=== PATIENT | male | born 2000 | race African-American/Black ===

== ENCOUNTER 2021-05-20 19:58 | Emergency (ER) | payer SELFPAY ==
[2021-05-20] MEDS ORDERED: ACETAMINOPHEN 325 MG TABLET ONE (20:21)
[2021-05-20 21:18] LABS: SARS-COV-2 RT PCR POSITIVE (NEGATIVE)
--- NOTE | 2021-05-20 21:31 | EDPHYS ---
Physician Documentation [facility] Name: Herrera Izaguirre III Age: 20 yrs Sex: Male : 2000 Arrival Date: 05/20/2021 Time: 20:04 Bed 12 Private MD: ED Physician Curt Pino HPI: 05/20 21:30 This 20 yrs old Black Male presents to ER via Ambulatory with complaints of Fever, Body pm1 aches, Runny Nose. 21:30 The patient reports fever, not measured (subjective). Onset: The symptoms/episode pm1 began/occurred yesterday. Associated signs and symptoms: Pertinent positives: runny nose, Body aches, Pertinent negatives: chest pain, cough, diarrhea, headache, shortness of breath, vomiting. Severity of symptoms: in the emergency department the symptoms have improved markedly, Patient reports no symptoms at the moment and has improved markedly since yesterday. The patient has not experienced similar symptoms in the past. The patient has not recently seen a physician. Historical: - Allergies: 20:17 No Known Allergies; bb - Home Meds: 20:17 None [Active]; bb - PMHx: 20:17 None; bb - PSHx: 20:17 None; bb - Immunization history:: Adult Immunizations up to date, Client reports having NOT received the Covid vaccine. - Social history:: Smoking status: Patient reports the use of cigarette tobacco products, Patient/guardian denies using alcohol, street drugs. ROS: 21:30 Eyes: Negative for injury, pain, redness, and discharge, Neck: Negative for injury, pm1 pain, and swelling, Cardiovascular: Negative for chest pain, palpitations, and edema, Respiratory: Negative for shortness of breath, cough, wheezing, and pleuritic chest pain, Abdomen/GI: Negative for abdominal pain, nausea, vomiting, diarrhea, and constipation, Back: Negative for injury and pain, MS/Extremity: Negative for injury and deformity, Skin: Negative for injury, rash, and discoloration, Neuro: Negative for headache, weakness, numbness, tingling, and seizure. 21:30 Constitutional: Positive for body aches, fever, Negative for poor PO intake. 21:30 ENT: Positive for rhinorrhea, Negative for sore throat. 21:30 All other systems are negative. Exam: 21:30 Constitutional: This is a well developed, well nourished patient who is awake, alert, pm1 and in no acute distress. Head/Face: Normocephalic, atraumatic. 21:30 Back: No spinal tenderness. No costovertebral tenderness. Full range of motion. 21:30 Skin: Warm, dry with normal turgor. Normal color with no rashes, no lesions, and no evidence of cellulitis. MS/ Extremity: Pulses equal, no cyanosis. Neurovascular intact. Full, normal range of motion. 21:30 Eyes: Exam is negative for acute changes, Extraocular movements: no acute changes, Conjunctiva: no acute changes, no injection, Sclera: no acute changes, icterus, is not appreciated. 21:30 ENT: Exam is negative for acute changes, Mouth: no acute changes, Lips: normal, moist, Oral mucosa: normal, pink and intact, moist. 21:30 Cardiovascular: Exam negative for acute changes, Rate: normal, Rhythm: regular, Pulses: no pulse deficits are appreciated. 21:30 Respiratory: Exam negative for acute changes, respiratory distress, shortness of breath. 21:30 Abdomen/GI: Exam negative for acute changes, Inspection: abdomen appears normal, Palpation: abdomen is soft and non-tender, in all quadrants. 21:30 Neuro: Exam negative for acute changes, Orientation: is normal, Mentation: is normal, Motor: is normal, moves all fours. Vital Signs: 20:15 BP 125 / 97; Pulse 64; Resp 16 S; Temp 99.4(O); Pulse Ox 98% on R/A; Weight 60.78 kg bb (R); Height 5 ft. 6 in. (167.64 cm) (R); 20:15 Body Mass Index 21.63 (60.78 kg, 167.64 cm) bb MDM: 21:30 Data reviewed: vital signs. Data interpreted: Pulse oximetry: on room air is 98 %. pm1 Interpretation: normal. Counseling: I had a detailed discussion with the patient and/or guardian regarding: the historical points, exam findings, and any diagnostic results supporting the discharge/admit diagnosis, lab results, the need for outpatient follow up, to return to the emergency department if symptoms worsen or persist or if there are any questions or concerns that arise at home. 21:31 Patient medically screened. pm1 12/18 20:19 Order name: COVID-19/FLU A+B/RSV (Document "Date of Onset" if Symptomatic); Complete bb Time: :05/20 20:22 Order name: Strep bb 05/20 20:23 Order name: Group A Streptococcus Rapid Sc; Complete Time: 21:31 EDMS 05/20 20:53 Order name: Throat Culture EDMS Administered Medications: 20:23 Drug: Tylenol 650 mg Route: PO; bb 21:53 Follow up: Response: No adverse reaction bb Disposition: 05/21 04:25 Co-signature as Attending Physician, Curt Pino MD. [email or web address] Disposition Summary: 05/20/21 21:31 Discharge Ordered Location: Home pm1 Problem: new pm1 Symptoms: have improved pm1 Condition: Stable pm1 Diagnosis - Coronavirus infection, unspecified pm1 Followup: pm1 - With: Emergency Department - When: As needed - Reason: Worsening of condition Followup: pm1 - With: Private Physician - When: 2 - 3 days - Reason: Recheck today's complaints, Continuance of care, Re-evaluation by your physician Discharge Instructions: - Discharge Summary Sheet pm1 - COVID-19 pm1 - COVID-19 Frequently Asked Questions pm1 - 10 Things You Can Do to Manage Your COVID-19 Symptoms at Home - [facility] pm1 - COVID-19: Quarantine vs. Isolation - [facility] pm1 Forms: - Medication Reconciliation Form pm1 - Thank You Letter pm1 - Antibiotic Education pm1 - Prescription Opioid Use pm1 Signatures: Dispatcher [employer] EDMS Lou Kemp RN RN bb Gurpreet Catherine NP [employer] DEVELOPER pm1 Curt Pino MD MD 7
--- NOTE | 2021-05-20 21:31 | ER ---
Nurse's Notes [facility] Name: Herrera Izaguirre III Age: 20 yrs Sex: Male : 2000 Arrival Date: 05/20/2021 Time: 20:04 Bed 12 Private MD: Diagnosis: Coronavirus infection, unspecified Presentation: 05/20 20:15 Chief complaint: Patient states: he is having Covid like symptoms, body aches, fever, bb chills, headache, vomited x 1 for one day. Coronavirus screen: fever, headache, muscle pain, runny nose, Client presents with at least one sign or symptom that may indicate coronavirus-19. Standard/surgical mask placed on the client. Ebola Screen: No symptoms or risks identified at this time. Initial Sepsis Screen: Does the patient meet any 2 criteria? No. Patient's initial sepsis screen is negative. Does the patient have a suspected source of infection? No. Patient's initial sepsis screen is negative. Risk Assessment: Do you want to hurt yourself or someone else? Patient reports no desire to harm self or others. Onset of symptoms was May 20, 2021. 20:15 Method Of Arrival: Ambulatory bb 20:15 Acuity: CHACHO 4 bb Triage Assessment: 20:17 General: Appears in no apparent distress. Behavior is calm, cooperative. Pain: bb Complains of pain in headache, body aches. Neuro: Level of Consciousness is awake, alert, obeys commands, Oriented to person, place, time, situation. Cardiovascular: Heart tones S1 S2 present Capillary refill < 3 seconds Patient's skin is warm and dry. Respiratory: Respiratory effort is even, unlabored, Respiratory pattern is regular, Breath sounds are clear bilaterally. GI: Abdomen is flat, Reports vomiting, x 1 last night. Derm: Skin is dry, Skin is normal, Skin temperature is warm. Musculoskeletal: Circulation, motion, and sensation intact. Historical: - Allergies: 20:17 No Known Allergies; bb - Home Meds: 20:17 None [Active]; bb - PMHx: 20:17 None; bb - PSHx: 20:17 None; bb - Immunization history:: Adult Immunizations up to date, Client reports having NOT received the Covid vaccine. - Social history:: Smoking status: Patient reports the use of cigarette tobacco products, Patient/guardian denies using alcohol, street drugs. Screenin:52 Abuse screen: Denies threats or abuse. bb 21:53 Nutritional screening: No deficits noted. Tuberculosis screening: No symptoms or risk bb factors identified. Fall Risk None identified. Assessment: 21:52 Reassessment: Patient is alert, oriented x 3, equal unlabored respirations, skin bb warm/dry/pink. pt verbalized understanding of and agrees to plan of care discharge instructions given pt ambulated with steady gait to exit. Vital Signs: 20:15 BP 125 / 97; Pulse 64; Resp 16 S; Temp 99.4(O); Pulse Ox 98% on R/A; Weight 60.78 kg bb (R); Height 5 ft. 6 in. (167.64 cm) (R); 20:15 Body Mass Index 21.63 (60.78 kg, 167.64 cm) bb ED Course: 20:04 Patient arrived in ED. wm 20:16 Triage completed. bb 20:17 Arm band placed on Patient placed in waiting room, Patient notified of wait time. bb Covid, flu, rsv swab sent to lab. 20:23 COVID swab sent to lab. Flu and/or RSV swab sent to lab. Strep swab sent to lab. bb 21:30 Gurpreet Catherine NP is PHCP. pm1 21:30 Curt Pino MD is Attending Physician. pm1 21:51 Lou Kemp RN is Primary Nurse. bb 21:53 Patient has correct armband on for positive identification. bb 21:53 No provider procedures requiring assistance completed. Patient did not have IV access bb during this emergency room visit. 21:54 Strep Sent. bb Administered Medications: 20:23 Drug: Tylenol 650 mg Route: PO; bb 21:53 Follow up: Response: No adverse reaction bb Outcome: 21:31 Discharge ordered by MD. pm1 21:53 Discharged to home ambulatory. bb 21:53 Condition: stable 21:53 Discharge instructions given to patient, Instructed on discharge instructions, follow up and referral plans. Demonstrated understanding of instructions, follow-up care. 21:54 Patient left the ED. bb Signatures: Lou Kemp RN RN bb Gurperet Cathernie NP [employer] MECH[employer]IC pm1 Shannan Lopez Corrections: (The following items were deleted from the chart) 21:53 21:52 Reassessment: Patient is alert, oriented x 3, equal unlabored respirations, skin bb warm/dry/pink. pt verbalized understanding of and agrees to plan of care discharge instructions given pt ambulated with steady gait to exit will call back for results bb
[2021-05-20 22:22] VITALS: BP 125/97; TEMP 99.4; O2SAT 98
== END 2021-05-20 21:54 | disposition home or self-care (01) ==
LOC: ER 19:58
DX: U07.1 COVID-19 (principal); Z72.0 Tobacco use
CPT/HCPCS: 0241U; 87070; 87081; 99283